=== PATIENT | male | born 1950 | race Caucasian/White ===

== ENCOUNTER 2021-03-17 11:47 | Emergency (ER) | payer MEDICARE, OTHER ==
[~2021-03-17 11:47] MED LIST: ASPIRIN EC81 MG PO; ATORVASTATIN CA40 MG PO; BENADRYL25 MG PO; CLOPIDOGREL75 MG PO; LASIX20 MG PO; LISINOPRIL 10MG10 MG PO; METFORMIN HCL1000 MG PO; NOVOLIN 70100 UNIT/M SC; PANTOPRAZOLE SO40 MG PO; PLAVIX75 MG PO; PROTONIX 40MG T40 MG PO; RANEXA1000 MG PO
[2021-03-17 12:49] LABS: BASOPHIL 0.5 % (0-2); EOSINOPHIL 0.6 % (0-7); HCT 33.6 % (42.0-52.0); HGB 11.2 g/dl (13.2-18.0); LYMPHOCYTE 10.8 % (15-48); MCH 29.6 pg (25.0-31.0); MCHC 33.3 g/dL (32.0-36.0); MCV 88.7 fL (78.0-100.0); MONOCYTE 7.6 % (0-12); NEUTROPHIL 80.1 % (41-80); NRBC 0; PLT 436 K/uL (150-400); RBC 3.79 M/uL (4.70-6.00); RDW 13.4 % (11.5-14.0); WBC 12.2 K/uL (4.0-10.5)
[2021-03-17 13:18] LABS: ALBUMIN 2.2 g/dL (3.4-5.0); BILIRUBIN - TOTAL 0.6 mg/dL (0.2-1.0); CREATININE 1.82 mg/dL (0.67-1.17); GLOBULIN (CALCULATION) 6.1 g/dL; POTASSIUM 5.1 mmol/L (3.5-5.1); TOTAL PROTEIN 8.3 g/dL (6.4-8.2)
[2021-03-17 14:21] LABS: BILIRUBIN NEGATIVE (NEGATIVE); BLOOD 1+ Ery/uL (NEGATIVE); CLARITY CLOUDY (CLEAR); COLOR YELLOW (YELLOW); GLUCOSE (U) 3+ mg/dL (NORMAL); LEUKOCYTES 2+ Leu/uL (NEGATIVE); NITRITE NEGATIVE (NEGATIVE); PROTEIN 1+ mg/dL (NEGATIVE); UROBILINOGEN 0.2 mg/dL (0.2-1.0)
[2021-03-17 14:58] LABS: URINARY WBC TNTC
[2021-03-17 14:59] LABS: BACTERIA 1+
[2021-03-17] MEDS ORDERED: VIBRAMYCIN100 MG PO (15:18)
== END 2021-03-17 15:31 | disposition home or self-care (01) ==
LOC: FER 11:47
PROVIDERS: Emergency Medicine
DX: E86.0 Dehydration (principal)
CPT/HCPCS: 36415; 80053; 81001; 85025; 99284; J7030

== ENCOUNTER 2022-01-04 11:13 | Emergency (ER) | payer MEDICARE, OTHER ==
[~2022-01-04 11:13] MED LIST changes: +VIBRAMYCIN100 MG PO
[2022-01-04 12:26] LABS: BASOPHIL 0.5 % (0-2); EOSINOPHIL 3.9 % (0-7); HGB 9.5 g/dl (13.2-18.0); LYMPHOCYTE 26.6 % (15-48); MCH 30.1 pg (25.0-31.0); MCHC 30.6 g/dL (32.0-36.0); MCV 98.1 fL (78.0-100.0); MONOCYTE 8.9 % (0-12); MPV 10.4 fL (6.0-9.5); NEUTROPHIL 59.8 % (41-80); NRBC 0; PLT 355 K/uL (150-400); RBC 3.16 M/uL (4.70-6.00); RDW 16.7 % (11.5-14.0); WBC 5.9 K/uL (4.0-10.5)
[2022-01-04 12:46] LABS: BUN/CREAT RATIO (CALC) 8.9 RATIO; CREATININE 1.35 mg/dL (0.67-1.17); POTASSIUM 4.3 mmol/L (3.5-5.1)
[2022-01-04 13:15] LABS: CORONAVIRUS 2019 SARS-COV-2 NEGATIVE (NEGATIVE); INFLUENZA A NAA NEGATIVE (NEGATIVE)
[2022-01-04 13:39] LABS: LACTIC ACID 1.3 mmol/L (0.4-1.9)
[2022-01-04 13:54] LABS: BILIRUBIN NEGATIVE (NEGATIVE); BLOOD NEGATIVE Ery/uL (NEGATIVE); CLARITY CLEAR (CLEAR); COLOR YELLOW (YELLOW); GLUCOSE (U) NORMAL (NORMAL); LEUKOCYTES TRACE Leu/uL (NEGATIVE); NITRITE NEGATIVE (NEGATIVE); PROTEIN NEGATIVE (NEGATIVE); SPECIFIC GRAVITY >=1.030 (1.001-1.030); UROBILINOGEN 0.2 mg/dL (0.2-1.0)
[2022-01-04 14:09] LABS: BACTERIA 2+; SQUAMOUS EPITHELIAL CELLS RARE
[2022-01-04] MEDS ORDERED: CIPRO500 MG PO (15:19)
== END 2022-01-04 15:47 | disposition home or self-care (01) ==
LOC: FER 11:13
PROVIDERS: Nurse Practitioner Family
DX: N39.0 Urinary tract infection, site not specified (principal); E86.0 Dehydration; E11.9 Type 2 diabetes mellitus without complications; I50.9 Heart failure, unspecified; Z20.822 Contact with and (suspected) exposure to COVID-19
CPT/HCPCS: 36415; 71045; 80048; 81001; 83605; 85025; 87040; 87088; J7030; U0002